=== PATIENT | female | born 1950 | race Caucasian/White ===

== ENCOUNTER → 2017-02-24 | Outpatient (REF) | payer OTHER ==
[~2017-02-24] MED LIST: AMLO5TAB2; ASPI325T; ATEN25TA; ATIV0.5T; BENI20TA11; ESTR3TA; Estradiol; IBUP400T; LOSARTAN-HCTZ; NITR0.4S; OMEP40CA2; REST0.05; ZOCO20TA
[2017-02-24 11:04] LABS: ANION GAP 5 MEQ/L (8-16); BLOOD UREA NITROGEN 22 MG/DL (7-18); CALCIUM LEVEL 9.9 MG/DL (8.8-10.2); CARBON DIOXIDE LEVEL 31 MEQ/L (21-32); CHLORIDE LEVEL 106 MEQ/L (98-107); CREATININE FOR GFR 0.74 MG/DL (0.55-1.02); GLOMERULAR FILTRATION RATE > 60.0 (>45); GLUCOSE, FASTING 107 MG/DL (80-110); POTASSIUM SERUM 4.3 MEQ/L (3.5-5.1); SODIUM LEVEL 142 MEQ/L (136-145)
== END ==
LOC: M LAB REF 07:38 → M LABDRAW1 07:38
PROVIDERS: ATTEND Family Medicine
DX: R73.01 Impaired fasting glucose (principal)

== ENCOUNTER 2017-04-01 08:28 | Emergency (ER) | payer OTHER ==
[~2017-04-01] VITALS: Ht 160 cm; Wt 63.2 kg
[~2017-04-01 08:28] MED LIST changes: -AMLO5TAB2; -ESTR3TA; -LOSARTAN-HCTZ; -OMEP40CA2; -REST0.05
[2017-04-01] MEDS ORDERED: AMLO5TAB2 (09:00)
[2017-04-01] MEDS ORDERED: REST0.05 (09:00)
[2017-04-01] MEDS ORDERED: ESTR3TA (09:00)
[2017-04-01] MEDS ORDERED: LOSARTAN-HCTZ (09:00)
[2017-04-01] MEDS ORDERED: OMEP40CA2 (09:00)
[2017-04-01 10:01] LABS: BASO % 0.6 % (0.0-1.0); EOS # 0.1 10^3/uL (0.0-0.50); EOS % 1.4 % (0.0-3.0); IMMATURE GRANULOCYTE % 0.2 % (0-0); LYMPH # 1.4 10^3/uL (1.5-4.5); MEAN CORPUSCULAR HEMOGLOBIN 32.2 pg (27.0-33.0); MEAN CORPUSCULAR HGB CONC 34.8 g/dl (32.0-36.5); MEAN CORPUSCULAR VOLUME 92.5 fl (80.0-96.0); MONO # 0.3 10^3/uL (0.0-0.8); MONO % 6.7 % (0.0-5.0); NEUTROPHILS # 3.3 10^3/uL (1.8-7.7); NEUTROPHILS % 64.1 % (36.0-66.0); PLATELET COUNT, AUTOMATED 353 10^3/uL (150-450); RED CELL DISTRIBUTION WIDTH 11.9 % (11.5-14.5); WHITE BLOOD COUNT 5.1 10^3/uL (4.0-10.0)
--- NOTE | 2017-04-01 10:05 | REP ---
CT Head without contrast HISTORY: Headache COMPARISON: 10/10/2009 There is no intraparenchymal hemorrhage, acute infarct, mass or midline shift. The ventricular system is normal in appearance. There is no extra cerebral collection. There is no fracture. The visualized sinuses are clear. IMPRESSION: There is no intracranial lesion. Signed by Ayaan Vanegas MD 04/01/2017 09:56 A
[2017-04-01 10:36] LABS: ANION GAP 5 MEQ/L (8-16); BLOOD UREA NITROGEN 21 MG/DL (7-18); CALCIUM LEVEL 9.9 MG/DL (8.8-10.2); CARBON DIOXIDE LEVEL 31 MEQ/L (21-32); CHLORIDE LEVEL 105 MEQ/L (98-107); CREATININE FOR GFR 0.74 MG/DL (0.55-1.02); GLOMERULAR FILTRATION RATE > 60.0 (>45); GLUCOSE, FASTING 94 MG/DL (80-110); POTASSIUM SERUM 3.6 MEQ/L (3.5-5.1); SODIUM LEVEL 141 MEQ/L (136-145)
[2017-04-01 11:30] VITALS: BP 166/81
--- NOTE | 2017-04-02 08:14 | ECGEPIP ---
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
== END 2017-04-01 12:35 | disposition home or self-care (01) ==
LOC: M ED 08:28
DX: I10 Essential (primary) hypertension (principal); R51 Headache; R94.31 Abnormal electrocardiogram [ECG] [EKG]

== ENCOUNTER → 2017-05-30 | Outpatient (CLI) | payer OTHER ==
[~2017-05-30] MED LIST changes: +AMLO5TAB2; +ESTR3TA; +LOSARTAN-HCTZ; +OMEP40CA2; +REST0.05
[2017-05-30 10:20] LABS: ALBUMIN 3.3 GM/DL (3.2-5.2); ALBUMIN/GLOBULIN RATIO 0.92 (1.00-1.93); ALKALINE PHOSPHATASE 73 U/L (45-117); ALT/SGPT 17 U/L (12-78); ANION GAP 7 MEQ/L (8-16); AST/SGOT 10 U/L (7-37); BILIRUBIN,TOTAL 0.4 MG/DL (0.2-1.0); BLOOD UREA NITROGEN 25 MG/DL (7-18); CALCIUM LEVEL 9.7 MG/DL (8.8-10.2); CARBON DIOXIDE LEVEL 32 MEQ/L (21-32); CHLORIDE LEVEL 102 MEQ/L (98-107); CREATININE FOR GFR 0.74 MG/DL (0.55-1.02); GLOMERULAR FILTRATION RATE > 60.0 (>45); GLUCOSE, FASTING 104 MG/DL (80-110); POTASSIUM SERUM 3.9 MEQ/L (3.5-5.1); SODIUM LEVEL 141 MEQ/L (136-145); TOTAL PROTEIN 6.9 GM/DL (6.4-8.2)
== END ==
LOC: M LABDRAW1 08:23
PROVIDERS: ATTEND Family Medicine
DX: R73.01 Impaired fasting glucose (principal)

== ENCOUNTER → 2017-07-25 | Outpatient (REF) | payer OTHER ==
[2017-07-25 11:22] LABS: ESTIMATED AVERAGE GLUCOSE 114 MG/DL (60-110); HEMOGLOBIN A1c 5.6 %
== END ==
LOC: M LABDRAW1 08:31
DX: R73.03 Prediabetes (principal)

== ENCOUNTER → 2018-06-28 | Outpatient (REF) | payer MEDICARE, OTHER ==
[~2018-06-28] MED LIST changes: -AMLO5TAB2; +AMLO5TAB6
[2018-06-28 10:22] LABS: BASO % 0.6 % (0.0-1.0); EOS # 0.2 10^3/uL (0.0-0.50); EOS % 3.1 % (0.0-3.0); HEMATOCRIT 38.5 % (36.0-47.0); HEMOGLOBIN 13.2 g/dl (12.0-15.5); LYMPH # 2.4 10^3/uL (1.5-4.5); LYMPH % 39.1 % (24.0-44.0); MEAN CORPUSCULAR HEMOGLOBIN 31.7 pg (27.0-33.0); MEAN CORPUSCULAR HGB CONC 34.3 g/dl (32.0-36.5); MEAN CORPUSCULAR VOLUME 92.5 fl (80.0-96.0); MONO # 0.5 10^3/uL (0.0-0.8); MONO % 7.4 % (0.0-5.0); NEUTROPHILS # 3.1 10^3/uL (1.8-7.7); NEUTROPHILS % 49.6 % (36.0-66.0); PLATELET COUNT, AUTOMATED 387 10^3/uL (150-450); RED BLOOD COUNT 4.16 10^6/uL (4.00-5.40); WHITE BLOOD COUNT 6.2 10^3/uL (4.0-10.0)
[2018-06-28 10:33] LABS: ALBUMIN 3.4 GM/DL (3.2-5.2); ALT/SGPT 20 U/L (12-78); BILIRUBIN,TOTAL 0.5 MG/DL (0.2-1.0); BLOOD UREA NITROGEN 24 MG/DL (7-18); CALCIUM LEVEL 9.3 MG/DL (8.8-10.2); CARBON DIOXIDE LEVEL 30 MEQ/L (21-32); CHLORIDE LEVEL 105 MEQ/L (98-107); CHOLESTEROL LEVEL 222 MG/DL (<200); CHOLESTEROL RISK RATIO 3.415 (<5); CREATININE FOR GFR 0.73 MG/DL (0.55-1.30); FREE T4 1.34 NG/DL (0.76-1.46); GLOMERULAR FILTRATION RATE > 60.0 (>45); GLUCOSE, FASTING 100 MG/DL (70-100); HDL CHOLESTEROL 65 MG/DL (>40); LDL CHOLESTEROL 132 MG/DL (<100); NON-HDL-C 157 MG/DL; POTASSIUM SERUM 3.8 MEQ/L (3.5-5.1); SODIUM LEVEL 141 MEQ/L (136-145); TOTAL PROTEIN 6.9 GM/DL (6.4-8.2); TRIGLYCERIDES LEVEL 125 MG/DL (<150)
[2018-06-28 11:16] LABS: HEMOGLOBIN A1c 5.7 %
== END ==
LOC: M LABDRAW1 09:44
PROVIDERS: ATTEND Physician Assistant
DX: Z13.0 Encounter for screening for diseases of the blood and blood-forming organs and certain disorders involving the immune mechanism (principal); E78.2 Mixed hyperlipidemia; E03.9 Hypothyroidism, unspecified; R73.03 Prediabetes

== ENCOUNTER → 2019-01-29 | Outpatient (REF) | payer MEDICARE, OTHER ==
[2019-01-29 13:56] LABS: BLOOD UREA NITROGEN 19 MG/DL (7-18); CREATININE FOR GFR 0.71 MG/DL (0.55-1.30); GLOMERULAR FILTRATION RATE > 60.0 (>45)
== END ==
LOC: M LABDRAW1 12:53
PROVIDERS: ATTEND Ophthalmology
DX: H49.12 Fourth [trochlear] nerve palsy, left eye (principal)

== ENCOUNTER → 2019-01-31 | Outpatient (CLI) | payer MEDICARE, OTHER ==
[~2019-01-31] MED LIST changes: +PROHANCE 279.3MG/ML 5ML VIAL (A9576) As Ordered ONE
--- NOTE | 2019-01-31 20:35 | REPVR ---
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 Contrast material: PROHANCE;Contrast volume: 10 ml;Contrast route: 22G ANGIO; COMPARISON: No relevant prior studies available. FINDINGS: Orbits: Normal. Sinuses: Unremarkable. No air-fluid levels. Soft tissues: Unremarkable. IMPRESSION: Unremarkable Orbits. Electronically signed by: Jeannette Keller On 01/31/2019 20:35:24 PM
--- NOTE | 2019-01-31 20:44 | REPVR ---
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 Contrast material: PROHANCE;Contrast volume: 10 ml;Contrast route: 22G ANGIO; COMPARISON: MRI-Brain W/O FOLL BY WITH 03/03/2015 8:17 AM FINDINGS: Brain: No acute infarct identified on the diffusion weighted imaging. No parenchymal hemorrhage. A T2 hyperintense focus is again demonstrated in the right frontal lobe subcortical white matter, potentially represents trace chronic small vessel ischemic change. A small cystic focus in the inferior left cerebellar region is unchanged (no evidence of gliosis or adjacent edema on the FLAIR sequence), could potentially represent a tiny arachnoid cyst. No pathologic enhancement on the post contrast imaging. No discrete cisternal or cavernous sinus mass identified. Ventricles: Stable. No ventriculomegaly. Bones/joints: Unremarkable. Soft tissues: Normal. Sinuses: Normal as visualized. No acute sinusitis. Mastoid air cells: Normal as visualized. No mastoid effusion. Orbits: Unremarkable. IMPRESSION: No acute intracranial abnormality seen. Electronically signed by: Jeannette Keller On 01/31/2019 20:44:32 PM
== END ==
LOC: M RAD 17:56
PROVIDERS: ATTEND Ophthalmology
DX: H49.12 Fourth [trochlear] nerve palsy, left eye (principal)
CPT/HCPCS: 70543; 70553; A9576

== ENCOUNTER → 2019-03-12 | Outpatient (REF) | payer MEDICARE, OTHER ==
[~2019-03-12] MED LIST changes: -PROHANCE 279.3MG/ML 5ML VIAL (A9576) As Ordered ONE
[2019-03-12 14:34] LABS: FREE T4 1.16 NG/DL (0.76-1.46); THYROID STIMULATING HORMONE 1.96 uIU/ML (0.358-3.740)
== END ==
LOC: M LABDRAW1 11:53
PROVIDERS: ATTEND Ophthalmology
DX: H49.12 Fourth [trochlear] nerve palsy, left eye (principal)

== ENCOUNTER → 2021-01-02 | Outpatient (CLI) | payer MEDICARE, OTHER ==
[~2021-01-02] MED LIST changes: +AMLO1TAB24; -AMLO5TAB6; -OMEP40CA2; +OMEP40CA4
--- NOTE | 2021-01-02 22:22 | REPVR ---
PROCEDURE INFORMATION: Exam: MR Lumbar Spine Without Contrast Exam date and time: 01/02/2021 12:14 PM Age: 70 years old Clinical indication: Low back pain and other: RT sided radioculopathy. TECHNIQUE: Imaging protocol: Multiplanar magnetic resonance images of the lumbar spine without intravenous contrast. COMPARISON: No relevant prior studies available. FINDINGS: Vertebral body heights are maintained. No abnormal marrow signal. 0.6 cm grade 1 anterolisthesis of L4 on L5. No cord compression. No abnormal cord signal. Conus medullaris terminates at the L1 level. Paravertebral soft tissues are unremarkable. L1-L2: No significant canal or foraminal narrowing. L2-L3: Broad-based disc bulge and facet hypertrophy cause moderate canal narrowing and mild bilateral foraminal narrowing. L3-L4: Broad-based disc bulge and facet hypertrophy cause moderate canal narrowing and mild bilateral foraminal narrowing. L4-L5: Combination of anterolisthesis, broad-based disc bulge, and facet hypertrophy cause moderate canal narrowing with effacement of the bilateral lateral recesses and slight impingement upon the traversing bilateral L5 nerve roots. Moderate bilateral foraminal narrowing. L5-S1: No significant canal or foraminal narrowing. IMPRESSION: Multilevel spondylotic changes of the lumbar spine, most pronounced at L4-L5, as detailed above. Electronically signed by: Andrew Fischer On 01/02/2021 22:21:54 PM
== END ==
LOC: M PLARAD 10:56
PROVIDERS: ATTEND Physician Assistant
DX: M47.816 Spondylosis without myelopathy or radiculopathy, lumbar region (principal); M54.31 Sciatica, right side